=== PATIENT | female | born 1985 | race American Indian/Alaskan Native ===

== ENCOUNTER 2020-04-16 02:00 | Emergency (ER) | payer OTHER ==
[2020-04-16] MEDS ORDERED: Sodium Chloride 0.9% 10 ML Syringe FLUSH PRN (02:02)
[2020-04-16] MEDS ORDERED: Sodium Chloride 0.9% 2.5 ML Syringe FLUSH PRN (02:02)
--- NOTE | 2020-04-16 02:08 | EDM.PDOC ---
ED HPI GENERAL MEDICAL PROBLEM - General Chief Complaint: Neck Problem Stated Complaint: SUICIDAL Time Seen by Provider: 04/16/20 02:02 - History of Present Illness INITIAL COMMENTS - FREE TEXT/NARRATIVE: 34-year-old female with history of hypertension history of opioid abuse on Suboxone who is been in detention for 2 days who was found laying on the ground with a sheet wrapped around her neck and what appeared to be an attempted hanging. Patient is awake she reports left lateral neck pain. She denies weakness in her extremities she denies numbness or in extremities she states that she cannot get comfortable she does appear somewhat restless. She reports subjective difficulty breathing as well. The left-sided neck pain is constant and stable with no clear exacerbating or alleviating factors patient arrives in c-collar. Review of records indicates a prior h/o self harm. She ingested cold packs in 2013 and was admitted to this facility. She ended up absconding from the ICU during that admission. - Related Data Allergies Allergy/AdvReac Type Severity Reaction Status Date / Time doxycycline Allergy Cannot Verified 04/16/20 02:24 Remember Home Meds: Home Meds Adimir 02/11/14 [History] Aviril 02/11/14 [History] Bp Med 02/11/14 [History] Diabetes Med 02/11/14 [History] Steromil 02/11/14 [History] . [No Known Home Meds] 03/30/14 [History] Past Medical History - Past Health History Medical/Surgical History: Denies Medical/Surgical History ED ROS GENERAL - Review of Systems Review Of Systems: See Below Free Text/Narrative/Comment: General: No fever. Skin: No rash. Eyes: No vision problems. ENT: Per HPI Neck: Per HPI Respiratory: No shortness of breath. Cardiac: No chest pain. Gastrointestinal: No nausea, vomiting or abdominal pain. Urinary: No dysuria. Musculoskeletal: No myalgias/arthralgias. Neurologic: No headache. ED EXAM, GENERAL - Physical Exam Exam: See Below Free Text/Narrative:: General Appearance: No acute distress, appears comfortable Skin: No rash HEENT: Normocephalic/atraumatic, sclera anicteric, mucous membranes moist Neck: No midline posterior step-off or deformity patient with left lateral neck tenderness intact carotids bilaterally no swelling is noted patient with soft voice but not hoarse voice, no visible abrasions or erythema Chest and Lungs: Bilateral breath sounds, clear to auscultation Cardiovascular: Regular rate and rhythm, no murmur Abdomen: Soft, non-tender Back: Normal Musculoskeletal: No edema or tenderness Neurologic: Awake, alert, no obvious deficits, moving all extremities Psychiatric: Appropriate, cooperative EKG INTERPRETATION EKG Interpretation Comments: EKG demonstrates normal sinus rhythm at a rate of 65 normal axis and intervals no acute ischemia QTC 438 Course - Vital Signs Last Recorded V/S: Last Vital Signs Temp 97.3 F 04/16/20 02:04 Pulse 74 04/16/20 02:04 Resp 20 04/16/20 02:04 BP 120/79 04/16/20 02:04 Pulse Ox 99 04/16/20 02:04 - Orders/Labs/Meds Orders: Active Orders 24 hr Category Date Time Status EKG 12 Lead [EKG Documentation Completion] [RC] STAT Care 04/16/20 02:08 Active Sodium Chloride 0.9% [Saline Flush] Med 04/16/20 02:02 Active 10 ml FLUSH ASDIRECTED PRN Sodium Chloride 0.9% [Saline Flush] Med 04/16/20 02:02 Active 2.5 ml FLUSH ASDIRECTED PRN Saline Lock Insert [OM.PC] Stat Oth 04/16/20 02:02 Ordered Medication Orders Sodium Chloride (Saline Flush) 10 ml FLUSH ASDIRECTED PRN PRN Reason: Keep Vein Open Sodium Chloride (Saline Flush) 2.5 ml FLUSH ASDIRECTED PRN PRN Reason: Keep Vein Open Labs: Laboratory Tests 04/16/20 04/16/20 04/16/20 Range/Units 02:07 02:07 02:07 WBC 9.17 (4.0-11.0) K/uL RBC 4.69 (4.30-5.90) M/uL Hgb 12.9 (12.0-16.0) g/dL Hct 38.9 (36.0-46.0) % MCV 82.9 (80.0-98.0) fL MCH 27.5 (27.0-32.0) pg MCHC 33.2 (31.0-37.0) g/dL RDW Std Deviation 44.3 (28.0-62.0) fl RDW Coeff of Kaleigh 15 (11.0-15.0) % Plt Count 333 (150-400) K/uL MPV 9.60 (7.40-12.00) fL Neut % (Auto) 69.2 (48.0-80.0) % Lymph % (Auto) 23.4 (16.0-40.0) % Clark % (Auto) 6.9 (0.0-15.0) % Eos % (Auto) 0.2 (0.0-7.0) % Baso % (Auto) 0.3 (0.0-1.5) % Neut # (Auto) 6.3 H (1.4-5.7) K/uL Lymph # (Auto) 2.2 (0.6-2.4) K/uL Clark # (Auto) 0.6 (0.0-0.8) K/uL Eos # (Auto) 0.0 (0.0-0.7) K/uL Baso # (Auto) 0.0 (0.0-0.1) K/uL Nucleated RBC % 0.0 /100WBC Nucleated RBCs # 0 K/uL Sodium 139 (136-145) mmol/L Potassium 3.7 (3.5-5.1) mmol/L Chloride 103 (98-107) mmol/L Carbon Dioxide 24.0 (21.0-32.0) mmol/L BUN 13 (7.0-18.0) mg/dL Creatinine 0.8 (0.6-1.0) mg/dL Est Cr Clr Drug Dosing TNP Estimated GFR (MDRD) > 60.0 ml/min Glucose 103 (74-106) mg/dL Calcium 9.0 (8.5-10.1) mg/dL Total Bilirubin 0.4 (0.2-1.0) mg/dL AST 25 (15-37) IU/L ALT 29 (14-63) IU/L Alkaline Phosphatase 73 (46-116) U/L Total Protein 7.1 (6.4-8.2) g/dL Albumin 3.6 (3.4-5.0) g/dL Globulin 3.5 (2.6-4.0) g/dL Albumin/Globulin Ratio 1.0 (0.9-1.6) HCG, Qual NEGATIVE (NEG) Urine Opiates Screen (NEGATIVE) Ur Oxycodone Screen (NEGATIVE) Urine Methadone Screen (NEGATIVE) Ur Barbiturates Screen (NEGATIVE) Ur Phencyclidine Scrn (NEGATIVE) Ur Amphetamine Screen (NEGATIVE) U Methamphetamines Scrn (NEGATIVE) U Benzodiazepines Scrn (NEGATIVE) U Cocaine Metab Screen (NEGATIVE) U Marijuana (THC) Screen (NEGATIVE) Ethyl Alcohol < 3.0 mg/dL 04/16/20 Range/Units 03:15 WBC (4.0-11.0) K/uL RBC (4.30-5.90) M/uL Hgb (12.0-16.0) g/dL Hct (36.0-46.0) % MCV (80.0-98.0) fL MCH (27.0-32.0) pg MCHC (31.0-37.0) g/dL RDW Std Deviation (28.0-62.0) fl RDW Coeff of Kaleigh (11.0-15.0) % Plt Count (150-400) K/uL MPV (7.40-12.00) fL Neut % (Auto) (48.0-80.0) % Lymph % (Auto) (16.0-40.0) % Clark % (Auto) (0.0-15.0) % Eos % (Auto) (0.0-7.0) % Baso % (Auto) (0.0-1.5) % Neut # (Auto) (1.4-5.7) K/uL Lymph # (Auto) (0.6-2.4) K/uL Clark # (Auto) (0.0-0.8) K/uL Eos # (Auto) (0.0-0.7) K/uL Baso # (Auto) (0.0-0.1) K/uL Nucleated RBC % /100WBC Nucleated RBCs # K/uL Sodium (136-145) mmol/L Potassium (3.5-5.1) mmol/L Chloride (98-107) mmol/L Carbon Dioxide (21.0-32.0) mmol/L BUN (7.0-18.0) mg/dL Creatinine (0.6-1.0) mg/dL Est Cr Clr Drug Dosing Estimated GFR (MDRD) ml/min Glucose (74-106) mg/dL Calcium (8.5-10.1) mg/dL Total Bilirubin (0.2-1.0) mg/dL AST (15-37) IU/L ALT (14-63) IU/L Alkaline Phosphatase (46-116) U/L Total Protein (6.4-8.2) g/dL Albumin (3.4-5.0) g/dL Globulin (2.6-4.0) g/dL Albumin/Globulin Ratio (0.9-1.6) HCG, Qual (NEG) Urine Opiates Screen NEGATIVE (NEGATIVE) Ur Oxycodone Screen NEGATIVE (NEGATIVE) Urine Methadone Screen NEGATIVE (NEGATIVE) Ur Barbiturates Screen NEGATIVE (NEGATIVE) Ur Phencyclidine Scrn NEGATIVE (NEGATIVE) Ur Amphetamine Screen NEGATIVE (NEGATIVE) U Methamphetamines Scrn NEGATIVE (NEGATIVE) U Benzodiazepines Scrn NEGATIVE (NEGATIVE) U Cocaine Metab Screen NEGATIVE (NEGATIVE) U Marijuana (THC) Screen POSITIVE (NEGATIVE) Ethyl Alcohol mg/dL Meds: Medications Generic Name Dose Route Start Last Admin Trade Name Freq PRN Reason Stop Dose Admin Sodium Chloride 10 ml 04/16/20 02:02 Saline Flush FLUSH ASDIRECTED PRN Keep Vein Open Sodium Chloride 2.5 ml 04/16/20 02:02 Saline Flush FLUSH ASDIRECTED PRN Keep Vein Open Discontinued Medications Generic Name Dose Route Start Last Admin Trade Name Freq PRN Reason Stop Dose Admin Iopamidol 100 ml 04/16/20 03:01 04/16/20 03:02 Isovue-370 (76%) IVPUSH 04/16/20 03:02 100 ml ONETIME STA Administration Departure - Departure Time of Disposition: 03:38 Disposition: Home, Self-Care 01 Condition: Good Clinical Impression: Suicide attempt by hanging - Discharge Information *PRESCRIPTION DRUG MONITORING PROGRAM REVIEWED*: Not Applicable *COPY OF PRESCRIPTION DRUG MONITORING REPORT IN PATIENT DANITA: Not Applicable Referrals: Obdulia Mera [Ordering Only Provider] - Forms: ED Department Discharge Additional Instructions: Please follow-up with a primary care provider soon as you are able. The following information is given to patients seen in the emergency department who are being discharged to home. This information is to outline your options for follow-up care. We provide all patients seen in our emergency department with a follow-up referral. The need for follow-up, as well as the timing and circumstances, are variable depending upon the specifics of your emergency department visit. If you don't have a primary care physician on staff, we will provide you with a referral. We always advise you to contact your personal physician following an emergency department visit to inform them of the circumstance of the visit and for follow-up with them and/or the need for any referrals to a consulting specialist. The emergency department will also refer you to a specialist when appropriate. This referral assures that you have the opportunity for follow-up care with a specialist. All of these measure are taken in an effort to provide you with optimal care, which includes your follow-up. Under all circumstances we always encourage you to contact your private physician who remains a resource for coordinating your care. When calling for follow-up care, please make the office aware that this follow-up is from your recent emergency room visit. If for any reason you are refused follow-up, please contact the [facility] Emergency Department at and asked to speak to the emergency department charge nurse. Sepsis Event Note (ED) - Focused Exam Vital Signs: Vital Signs Temp Pulse Resp BP Pulse Ox 04/16/20 02:04 97.3 F 74 20 120/79 99 - My Orders Last 24 Hours: My Active Orders 04/16/20 02:02 Sodium Chloride 0.9% [Saline Flush] 10 ml FLUSH ASDIRECTED PRN Sodium Chloride 0.9% [Saline Flush] 2.5 ml FLUSH ASDIRECTED PRN Saline Lock Insert [OM.PC] Stat 04/16/20 02:08 EKG 12 Lead [EKG Documentation Completion] [RC] STAT - Assessment/Plan Last 24 Hours: My Active Orders 04/16/20 02:02 Sodium Chloride 0.9% [Saline Flush] 10 ml FLUSH ASDIRECTED PRN Sodium Chloride 0.9% [Saline Flush] 2.5 ml FLUSH ASDIRECTED PRN Saline Lock Insert [OM.PC] Stat 04/16/20 02:08 EKG 12 Lead [EKG Documentation Completion] [RC] STAT Assessment:: 34-year-old female presenting after attempted hanging. Primary survey intact secondary survey notable for findings in the neck no stridor is noted no wheezing is noted but given reported shortness of breath chest x-ray ordered. You could consider soft tissue injury to the neck and so CTA ordered to evaluate for traumatic dissection as well as other injury. History does not suggest hanging from a height and so neck fracture would be unlikely but given she was found in the mechanism of injury CT of the C-spine ordered as well. Noncontrast CT of the head ordered as well as the patient appears somewhat altered although I would favor restlessness to be due to narcotic withdrawal. Patient will need care for her suicidality when she can be medically cleared. I preliminarily read the CT scan of the brain is no acute bleed or other a bnormality this was confirmed subsequently by radiology. Chest x-ray likewise without pneumothorax or other abnormality CT scan of the C-spine was read as negative by radiology and I cleared the patient's C-spine at 0311. We await CTA report and will discuss with trauma surgery 0340: Patient symptoms have essentially resolved her voice is normal her activity level is normal she has no altered mental status she is clinically well-appearing she has some mild left lateral neck soreness remainder of CT is without any traumatic findings. Given her clinical improvement and the negative imaging I do not see an indication to wake up trauma surgery at this time. Patient states that she typically does have these feelings when she comes off her Suboxone. This is day 2 without her Suboxone. This should improve in the next few days. Does appear to be situational the patient denies a plan to kill herself at this time patient will be discharged back to detention they will continue suicide watch for now which she was on already.
[2020-04-16 02:44] LABS: BLOOD UREA NITROGEN,BUN 13 mg/dL (7.0-18.0); CHLORIDE,CL 103 mmol/L (98-107); GLUCOSE RANDOM 103 mg/dL (74-106); POTASSIUM,K 3.7 mmol/L (3.5-5.1); SODIUM,NA 139 mmol/L (136-145)
--- NOTE | 2020-04-16 03:00 | CT ---
INDICATION: Attempted hanging TECHNIQUE: CT Head without i.v. contrast. COMPARISON: 02/11/2014 FINDINGS: CSF space: The ventricles are normal for age. Brain: No evidence of mass, acute infarction or hemorrhage is seen. No mass-effect or midline shift is seen. The brain parenchyma is otherwise normal in appearance with preservation of the hernadez-white matter junction. Calvarium: The visualized paranasal sinuses are well aerated. The mastoid air cells are clear. The visualized orbits are grossly unremarkable. The calvarium is unremarkable in appearance with no fractures identified. IMPRESSION: 1. No evidence of acute infarction, intracranial hemorrhage, or mass-effect seen. Please note that all CT scans at this facility use dose modulation, iterative reconstruction, and/or weight-based dosing when appropriate to reduce radiation dose to as low as reasonably achievable. Dictated by: Dany Causey MD @ 04/16/2020 02:58:27 (Electronically Signed)
[2020-04-16] MEDS ORDERED: Iopamidol 755 Mg/ML 100 ML Bottle IVPUSH STA (03:01)
--- NOTE | 2020-04-16 03:06 | CR ---
INDICATION: Attempted hanging, shortness of breath TECHNIQUE: Chest radiograph 1 view COMPARISON: 02/11/14 FINDINGS: Mediastinum: The mediastinum is normal in appearance. The heart silhouette is normal in size and morphology. Lung: Both lungs are unremarkable in appearance. No sign of pleural effusion seen. No pneumothorax is identified. Bone and Soft tissue: Unremarkable for age. IMPRESSION: 1. No acute cardiopulmonary disease is seen. Dictated by: Dany Causey MD @ 04/16/2020 03:04:12 (Electronically Signed)
--- NOTE | 2020-04-16 03:08 | CT ---
INDICATION: Attempted hanging, neck injury TECHNIQUE: CT cervical spine without i.v. contrast. Coronal and sagittal reformats were obtained. COMPARISON: 02/11/2014 FINDINGS: Alignment: Unremarkable. Bone: No acute fractures or aggressive bone lesions are identified. Disc: The disc spaces are unremarkable in appearance. The facet joints are unremarkable. Soft tissue: The prevertebral soft tissues are unremarkable in appearance. The visualized lung apices and mediastinum are unremarkable. IMPRESSION: 1. No acute osseous injuries are identified. Dictated by Dany Causey MD @ 04/16/2020 3:07:03 AM Please note that all CT scans at this facility use dose modulation, iterative reconstruction, and/or weight-based dosing when appropriate to reduce radiation dose to as low as reasonably achievable. Dictated by: Dany Casuey MD @ 04/16/2020 03:07:05 (Electronically Signed)
--- NOTE | 2020-04-16 03:10 | CT ---
INDICATION: Attempted hanging, neck trauma. TECHNIQUE: High resolution axial CT images acquired through the neck following rapid intravenous administration of iodinated contrast. Multiplanar MIPS of cervical vasculature performed. FINDINGS: Both carotid and vertebral arteries have a normal course and caliber. There is no stenosis or evidence for dissection. There is no evidence for traumatic injury to the great vessels. The soft tissues of the neck are within normal limits. The cervical spine is in normal alignment. The lung apices are clear. The airway is unremarkable. IMPRESSION: Unremarkable CTA neck. Smith Parker MD Neurointerventional [employer] [facility] Please note that all CT scans at this facility use dose modulation, iterative reconstruction, and/or weight-based dosing when appropriate to reduce radiation dose to as low as reasonably achievable. Dictated by Smith Parker MD @ Apr 16 2020 6:24AM Signed by Dr. Smith Parker @ Apr 16 2020 6:28AM
== END 2020-04-16 03:50 ==
LOC: MW.ED 02:00
DX: T71.162A Asphyxiation due to hanging, intentional self-harm, initial encounter (principal); I10 Essential (primary) hypertension; Z88.1 Allergy status to other antibiotic agents
CPT/HCPCS: 36415; 70450; 70498; 71045; 72125; 80053; 80305; 80307; 84703; 85025; 93005; 99285; Q9967; 99284